=== PATIENT | female | born 1980 | race Caucasian/White ===

== ENCOUNTER 2018-07-08 02:33 | Inpatient (IN) | payer BC ==
[2018-07-08] VITALS (9 sets, daily range): BP systolic 117–173; BP diastolic 64–103
[~2018-07-08] VITALS: Ht 175.3 cm; Wt 98.0 kg
[~2018-07-08 02:33] MED LIST: BP MEDS; CIPROFLOXACN500 MG PO; CYANOCOBALAM1000 MCG IJ; CYANOCOBALAM1000 MCG IM; DILAUDID 2MG2 MG/TA1 PO; NAPROXEN500 MG PO; NO CURRENT MEDS; NO HOME MEDS; PERCOCET 5/325M1 TAB PO; POOR HISTORIAN; TENORMIN25 MG PO; VALACYCLOVIR1 GM PO; ZOFRAN ODT4 MG PO
--- NOTE | 2018-07-08 02:48 | NUR ---
ASSISTED FROM W/C TO STRETCHER. RETURNED FOOT TO NORMAL POSITION OF FUNCTION AN SPLINTED WITH PILLOW. CSM CHECKS GOOD.
--- NOTE | 2018-07-08 02:55 | NUR ---
PHENERGAN WAS GIVEN IV PER DR. TENORIO VERBAL ORDERS.
[2018-07-08 03:01] LABS: HEMATOCRIT 42.3 % (37.0-47.0); IMMATURE GRANULOCYTES 0.7 % (0.0-5.0); MEAN CORPUSCULAR HGB 28.8 pG CALC (26.0-32.0); MEAN CORPUSCULAR HGB CONC 33.1 g/L CALC (32.0-36.0); NEUT# 6.77 thou/uL (2.00-7.15); RED BLOOD COUNT 4.86 mill/uL (4.20-5.60); RED CELL DISTRI WIDTH 13.4 % (11.5-15.5)
[2018-07-08] MEDS ORDERED: HTN MEDS (03:04)
[2018-07-08 03:13] LABS: ALBUMIN 4.6 g/dL (3.2-5.0); ALKALINE PHOSPHATASE 91 u/l (38-126); ANION GAP 25 (6-22 (CALC)); BILIRUBIN, TOTAL 0.4 mg/dL (0.0-1.4); BUN 8 mg/dL (7-17); BUN/CREATININE RATIO 11 (12-20 (CALC)); CARBON DIOXIDE 17 mmol/l (22-30); CHLORIDE 105 mmol/l (95-108); CREATININE 0.7 mg/dL (0.5-1.0); ETHYL ALCOHOL 104 mg/dl (0-30); GFR > 60 ML/MIN (>=60 (CALC)); GFR FOR AFR.AMER. > 60 ML/MIN (>=60 (CALC)); POTASSIUM 3.8 mmol/l (3.5-5.1); SGOT/AST 59 u/l (14-36); SGPT/ALT 56 u/l (9-52); SODIUM 143 mmol/l (137-146); TOTAL PROTEIN 8.1 g/dL (6.3-8.2)
[2018-07-08 03:18] LABS: INTERNATIONAL NORMALIZED RATIO 0.9 RATIO (0.7-1.3); PROTHROMBIN TIME 10.5 SECONDS (9.0-12.5)
--- NOTE | 2018-07-08 03:20 | NUR ---
TO CT SCAN AT THIS TIME.
[2018-07-08] MEDS ORDERED: CYCLOBENZAPRINE10 MG PO (03:30)
[2018-07-08] MEDS ORDERED: ALPRAZOLAM0.5 M2 PO (03:30)
[2018-07-08] MEDS ORDERED: DESYREL50 MG PO (03:31)
[2018-07-08] MEDS ORDERED: ATENOLOL25 MG PO (03:31)
[2018-07-08] MEDS ORDERED: ENALAPRIL MALE2.5 MG PO (03:31)
--- NOTE | 2018-07-08 03:32 | NUR ---
PT. RETURNED FROM CT SCAN AT THIS TIME IN STABLE CONDITION.
--- NOTE | 2018-07-08 04:26 | NUR ---
C/O 7/10 PAIN AT THIS TIME. WILL MEDICATE PER PHYSICIAN ORDERS.
--- NOTE | 2018-07-08 04:36 | NUR ---
PORT CHEST IN PROGRESS.
--- NOTE | 2018-07-08 04:54 | NUR ---
JOANNA JESUS AT BEDSIDE AT THIS TIME TO EVAULATE PATIENT.
--- NOTE | 2018-07-08 05:10 | NUR ---
DR. GONZALEZ AT BEDSIDE TO SPEAK TO PATIENT.
--- NOTE | 2018-07-08 05:15 | NUR ---
PT. STATES PAIN IMPROVED. 12/23 AT THIS TIME.
--- NOTE | 2018-07-08 05:36 | NUR ---
PT. TAKEN TO OR VIA STRETCHER BY MARILU DANIELLE.
--- NOTE | 2018-07-08 05:55 | NUR ---
REPORT CALLED TO CAROL ANN ON MED/SURG.
--- NOTE | 2018-07-08 07:55 | NUR ---
PT ARRIVED TO FLOOR VIA STRETCHER IN STABLE CONDITION ACCOMPANIED BY OR STAFF AND ;PT ASSISTED TO HOSPITAL BED WITH 3 PERSON ASSIST;PT ORIENTED TO ROOM AND CALL LIGHT SYSTEM AND VERBALIZES UNDERSTANDING;WT AND VS OBTAINED BY GWYN DIAZ;PT ALERT AND ORIENTED X3;PT REPORTS HAVING A "KID FREE NIGHT" WITH HER AND DRINKING TOO MUCH WHICH LED TO FALLING DOWN THE STAIRS;PT REPORTS PAIN TO RIGHT ANKLE TO BE 10/10 ON THE PAIN SCALE,PT TO BE MEDICATED WITH PRN PAIN MEDICATION PER MD ORDERS;ASSESSMENT COMPLETED;RESPIRATIONS EVEN AND UNLABORED ON RA,CLEAR/DIMINISHED LUNG SOUNDS NOTED;ABDOMEN DISTENDED/SOFT ON PALPATION AND ACTIVE IN ALL 4 QUADRANTS,LAST BM 07/07;STRONG PEDAL PULSE TO LEFT FOOT,RIGHT UNABLE TO PALPATE DUE TO XTERNAL FIXATOR;RIGHT ANKLE ELEVATED ON X2 PILLOWS PER ORDER;CAP REFILL LESS THAN 3 SECONDS AND PT IS ABLE TO MOVE HER TOES;SCD TO LEFT FOOT IN PLACE;ALL SAFETY PRECAUTIONS REINFORCED WITH BED IN THE LOWEST POSITION;ENCOURAGED PT TO CALL FOR ASSISTANCE IF NEEDED;CALL LIGHT IN REACH;WILL CONTINUE TO MONITOR
--- NOTE | 2018-07-08 08:08 | NUR ---
PT MEDICATED WITH PRN DILAUDID 1MG IVP FOR RIGHT ANKLE PAIN RATING 10/10 ON THE PAIN SCALE,WILL MONITOR FOR EFFECTIVENESS
--- NOTE | 2018-07-08 10:23 | NUR ---
PT COMPLAINS OF RIGHT ANKLE PAIN RATING 6/10 ON THE PAIN SCALE AND REQUESTS PAIN MEDICATION;PT MEDICATED WITH PRN MORPHINE 2MG IVP,WILL CONTINUE TO MONITOR
--- NOTE | 2018-07-08 10:25 | NUR ---
BOLUS OF 250CC PER HOUR ADMINISTERED OVER 30 MINS PER EDSON FRENCH R/T TACHYCARDIA;WILL CONTINUE TO MONITOR
--- NOTE | 2018-07-08 12:40 | NUR ---
PT RESTING IN SUPINE POSITION WITH IN BED;RESPIRATIONS EVEN AND UNLABORED ON RA;IV SITE TO LEFT HAND INFUSING WITH EASE;PT DENIES ANY CURRENT PAIN OR NEEDS;RIGHT ANKLE REMAINS ELEVATED ON X2 PILLOWS WITH EXTERNAL FIXATOR IN PLACE;ENCOURAGED ICE PACKS 20MINS ON AND OFF,PT VERBALIZES UNDERSTANDING;INSTRUCTED PT TO CALL FOR ASSISTANCE IF NEEDED;FALL PRECAUTIONS IN PLACE WITH CALL LIGHT IN REACH;WILL CONTINUE TO MONITOR
[2018-07-08 15:46] LABS: URINE BILIRUBIN - DIPSTICK NEGATIVE (NEGATIVE); URINE BLOOD DIPSTICK NEGATIVE (NEGATIVE); URINE COLOR YELLOW; URINE GLUCOSE - DIPSTICK 100 mg/dL (NEGATIVE); URINE KETONE NEGATIVE (NEGATIVE); URINE LEUK ESTERASE NEGATIVE (NEGATIVE); URINE NITRITE - DIPSTICK NEGATIVE (Negative); URINE PH 5.5 (4.5-8.0); URINE PROTEIN - DIPSTICK TRACE mg/dL (NEG-TRACE); URINE SPECIFIC GRAVITY >=1.030; URINE UROBILINOGEN - DIPSTICK 0.2 E.U./dL (0.2)
--- NOTE | 2018-07-08 15:46 | NUR ---
PT RESTING IN HIGH FOWLERS POSITION WITH SPOUSE IN BED;RESPIRATIONS REMAIN EVEN AND UNLABORED ON RA;PT REPORTS RIGHT ANKLE PAIN RATING 8/10 ON THE PAIN SCALE AND REQUESTS PAIN MEDICATION;PT MEDICATED WITH PRN PERCOCET 10/325MG 2 COMBO,WILL MONITOR FOR EFFECTIVENESS;EXTERNAL FIXATOR REMAINS IN PLACE TO RIGHT ANKLE,DRESSING CDI;RIGHT ANKLE ELEVATED ON X2 PILLOWS;PT DENIES ANY ADDITIONAL NEEDS;ASSESSMENT UNCHANGED;FALL PRECAUTIONS IN PLACE WITH CALL LIGHT IN REACH;WILL CONTINUE TO MONITOR
[2018-07-08 15:56] LABS: URINE CLARITY CLEAR
--- NOTE | 2018-07-08 16:00 | NUR ---
PT ARRIVED BACK TO FLOOR IN STABLE CONDITION ACCOMPANIED BY RADIOLOGY STAFF.
[2018-07-08 16:02] LABS: CHOLESTEROL HDL RATIO 4.9 (<4.4 (CALC))
--- NOTE | 2018-07-08 17:19 | NUR ---
PT REPORTS RIGHT ANKLE PAIN RATING 9/10 ON THE PAIN SCALE AND REQUESTS PAIN MEDICATION;PT MEDICATED WITH PRN MORPHINE 2MG IVP,WILL MONITOR FOR EFFECTIVENESS
--- NOTE | 2018-07-08 19:15 | NUR ---
PT RESTING IN BED WITH SIGNIFICANT OTHER. PT IS ALERT AND ORIENTED X3. SHIFT ASSESSMENT COMPLETED AT THIS TIME. IV PATENT X1. PLAN OF CARE REVIEWED WITH PT. CALL LIGHT IN REACH. WILL CONTINUE TO MONITOR.
--- NOTE | 2018-07-08 22:06 | NUR ---
PT REPORTS THAT PERCOCET DID NOT RELIEVE PAIN AT ALL AND REQUESTS MORPHINE. MEDICATED WITH MORPHINE PER DEC.
--- NOTE | 2018-07-08 23:44 | NUR ---
PT RESTING IN BED WITH EYES CLOSED. SIGNIFICANT OTHER IN BED WELL. RESP ARE EVEN AND UNLABORED. NO DISTRESS NOTED. CALL LIGHT IN REACH. WILL CONTINUE TO MONITOR
[2018-07-09 03:42] VITALS: BP 142/86
--- NOTE | 2018-07-09 04:18 | NUR ---
PT RESTING IN BED WITH SIGNIFICANT OTHER. RESP ARE EVEN AND UNLABORED. NO DISTRESS NOTED. CALL LIGHT IN REACH. WILL CONTINUE TO MONITR.
[2018-07-09 04:47] LABS: MEAN CELL VOLUME 89.6 fL CALC (80.0-100.0); MEAN CORPUSCULAR HGB 29.4 pG CALC (26.0-32.0); MEAN CORPUSCULAR HGB CONC 32.8 g/L CALC (32.0-36.0); RED BLOOD COUNT 3.95 mill/uL (4.20-5.60); RED CELL DISTRI WIDTH 13.5 % (11.5-15.5)
[2018-07-09 04:51] LABS: HEMOGLOBIN 11.6 g/dl (12.0-16.0)
[2018-07-09 04:52] LABS: HEMATOCRIT 35.4 % (37.0-47.0)
--- NOTE | 2018-07-09 04:58 | NUR ---
PT WITH COMPLAINTS OF EXCRUTIATING PAIN 07/25. PATIENT IN TEARS IN ROOM. MORPHINE IS NOT DUE AT THIS TIME. MEDICATED WITH 2 PERCOCET AND 10MG CYCLOBENZAPRINE PER MAR
--- NOTE | 2018-07-09 05:18 | NUR ---
SPOKE WITH DR MARTINEZ IN REFERENCE TO PAIN. NEW ORDERS RECEIVED. REINFORCED SMITH WITH GAUZE AND KERLIX DUE TO BLEEDING. WILL CONTINUE TO MONITOR.
--- NOTE | 2018-07-09 05:33 | NUR ---
DILAUDID 4MG IV GIVEN IN 2 DIVIDED DOSES FOR PT SAFETY.
[2018-07-09 07:45] VITALS: BP 156/91
--- NOTE | 2018-07-09 07:45 | NUR ---
ASSESSMENT IS COMPLETED: PT IS ALERT, NO DISTRESS NOTED. IV SITE IS FREE FROM REDNESS OR EDEMA. HR IS REG, PULSES ARE STRONG X4, ABD IS SOFT WITH ACTIVE BS. DRESSING ON R ANKLE IS CDI. CONTINUE TO OSBERVE AND MONITOR
--- NOTE | 2018-07-09 08:55 | NUR ---
ATTEMPTED EVAL THIS AM. HOWEVER, PT REFUSED DUE TO EXTREME PAIN ON R ANKLE WHEN SHE TRIES TO MOVE. REPORTS THAT SHE WILL UNDERGO SURGERY FOR R ANKLE GUEVARA AND PREFERS TO PARTICIPATE WITH P.Sara CLEMONS AFTER THE SURGERY.
[2018-07-09 11:30] VITALS: BP 151/88
--- NOTE | 2018-07-09 12:30 | NUR ---
PT'S IV SITE IS HEPLOCKED. NO DISTRESS NOTED CONTINUE TO OSBERVE AND MONITOR.
--- NOTE | 2018-07-09 16:00 | NUR ---
CALLED OR TO GET AN UPDATE ON POSSIBLE OR TOMORROW. , NOTHING IS ON THE BOOKS FOR TOMORROW. WAITING FOR THE DR'S NOTE. CONTINUE TO OSBERVE AND MONITOR
[2018-07-09 16:30] VITALS: BP 140/89
--- NOTE | 2018-07-09 16:30 | NUR ---
PT IS RELAXING IN BED AND VISITING WITH FAMILY.
--- NOTE | 2018-07-09 19:24 | NUR ---
REPORT GIVEN BY CELESTE APARICIO. PATIENT RESTING IN BED WITH FAMILY AT THE BEDSIDE. RESP EVEN AND UNLABORED. NO S/S OF DISTRESS NOTED. PLAN OF CARE DISCUSSED, FALL PRECAUTIONS IN PLACE, AND PATIENT INFORMED TO CALL WITH ANY QUESTIONS OR CONCERNS.
[2018-07-09 20:00] VITALS: BP 161/92
--- NOTE | 2018-07-09 20:24 | NUR ---
PATIENT DISLODGED OLD IV SITE IN THE LEFT HAND, NEW IV STARTED 20 R HAND.
--- NOTE | 2018-07-09 23:52 | NUR ---
PATIENT AWAKE WITH AT BEDSIDE. PATIENT HAS C/O OF RIGHT ANKLE PAIN WILL MEDICATE PER MD ORDERS. RESP EVEN AND UNLABORED.
[2018-07-10 01:03] VITALS: BP 144/81
[2018-07-10 03:39] VITALS: BP 146/92
--- NOTE | 2018-07-10 03:58 | NUR ---
PATIENT AWAKE WITH C/O PAIN WILL MEDICATE PER MD ORDERS. RESP EVEN AND UNLABORED. PRESENT AT THE BEDSIDE.
[2018-07-10 07:50] VITALS: BP 128/84
--- NOTE | 2018-07-10 07:50 | NUR ---
ASSESSMENT IS COMPLETED: IV SITE IS FREE FROM REDNESS OR EDEMA. HR IS REG, PULSES ARE STRONG X4, ABD IS SOFT WITH ACTIVE BS. BREATH SOUNDS ARE CLEAR, BILATERALLY. CONTINUE TO OBSERVE AND MONITOR.
--- NOTE | 2018-07-10 09:18 | NUR ---
SPOKE WITH RE: SURGERY (YES OR NO). PLANS ON DOING SURGERY NEXT MONDAY. WILL COME AND SEE THE PT TODAY. WANTING TO SEND HER HOME. PT IS NOT WANTING TO GO HOME RIGHT NOW DUE TO (MOVE TO A NEW PLACE, WILL BE ALONE, WILL BE OFF ON THE WEEKEND). CONTINUE TO OBSERVE AND MONITOR.
--- NOTE | 2018-07-10 12:30 | NUR ---
PT HAS BEEN IN THE CHAIR. NO DISTRESS NOTED. IV SITE IS FREE FROM REDNESS OR EDEMA.
--- NOTE | 2018-07-10 14:39 | NUR ---
AM: 11:20: PAlisa CLEMONS. DONE AND TRANSFER TRAINING MAINTAINING NWB RIGHT DONE. PATIENT LEFT COMFORTABLE IN THE CHAIR.
[2018-07-10 15:21] VITALS: BP 135/69
--- NOTE | 2018-07-10 15:44 | NUR ---
The patient is seen in PM. She has just gotten BTB NWB using the walker with assistance of family. She is instructed in and demonstrated HEP of gluteal and quad sets and advised to stand 6 x daily when DC home. She continues to have some donovan blood at the bottom of her dressing but has no pain. She is independent with bed mobility and with her HEP
--- NOTE | 2018-07-10 16:31 | NUR ---
IS HERE TO VISIT WITH PT. IV SITE IS FREE FROM REDNESS OR EDEMA.
--- NOTE | 2018-07-10 19:00 | NUR ---
RECEIVED CHANGE OF SHIFT REPORT FROM ALESSANDRA ALONSO. PT ALERT AND ORIENTED X 3 AND LYING IN BED. STATES PAIN LEVEL OF 4 ON 0-10 PAIN SCALE, WHICH SHE CAN TOLERATE. RLE WITH EXTERNAL FIXATOR ELEVATED ON PILLOW. FOOT COOL TO TOUCH. PT ABLE TO WIGGLE TOES. NO APPARENT ACUTE DISTRESS NOTED. WILL CONTINUE TO MONITOR.
[2018-07-10 19:22] VITALS: BP 143/85
--- NOTE | 2018-07-10 20:50 | NUR ---
PT ARRIVED TO THE FLOOR IN STABLE CONDITION VIA STRETCHER AND ACCOMPANIED BY ED NURSE. PT WEIGHED AND SETTLED TO BED. DENIES CHEST PAIN OR DISCOMFORT AT THIS TIME. ORIENT PT TO ROOM CALL SYSTEM. BED IN LOW POSITION AND CALL LIGHT IN REACH.
--- NOTE | 2018-07-11 | NUR ---
PT RESTING QUIETLY IN BED AND APPEARS TO BE ASLEEP. WAKES UP SPONTANEOUSLY. NO APPARENT ACUTE DISTRESS NOTED.
[2018-07-11 00:02] VITALS: BP 123/67
[2018-07-11 04:45] VITALS: BP 152/87
--- NOTE | 2018-07-11 05:00 | NUR ---
PT RESTED WELL DURING THE NIGHT. PAIN CONTROLLED WITH ALTERNATING MEDICATIONS. NO APPARENT ACUTE CHANGES NOTED IN PT'S CONDITION.
[2018-07-11 08:00] VITALS: BP 136/86
--- NOTE | 2018-07-11 08:00 | NUR ---
ASSESSMENT IS COMPLETD: IV SITE IS FREE FROM REDNESS OR EDEMA. HR IS REG,PULSES ARE STRONG X4, ABD IS SOFT WITH ACTIVE BS. DRESSING ON R ANKLE IS CDI. BREATH SOUNDS ARE CLEAR, BILATERALLY. CONTINUE TO OSEBRVE AND MONITOR
[2018-07-11 09:21] LABS: HEMATOCRIT 38.9 % (37.0-47.0); HEMOGLOBIN 12.7 g/dl (12.0-16.0); MEAN CELL VOLUME 89.4 fL CALC (80.0-100.0); MEAN CORPUSCULAR HGB 29.2 pG CALC (26.0-32.0); MEAN CORPUSCULAR HGB CONC 32.6 g/L CALC (32.0-36.0); RED BLOOD COUNT 4.35 mill/uL (4.20-5.60); RED CELL DISTRI WIDTH 13.4 % (11.5-15.5)
[2018-07-11 09:47] LABS: BUN 6 mg/dL (7-17); BUN/CREATININE RATIO 11 (12-20 (CALC)); CHLORIDE 103 mmol/l (95-108); CREATININE 0.6 mg/dL (0.5-1.0); GFR > 60 ML/MIN (>=60 (CALC)); GFR FOR AFR.AMER. > 60 ML/MIN (>=60 (CALC)); POTASSIUM 3.8 mmol/l (3.5-5.1); SODIUM 143 mmol/l (137-146)
[2018-07-11 09:51] LABS: ANION GAP 19 (6-22 (CALC)); CARBON DIOXIDE 25 mmol/l (22-30)
[2018-07-11 11:00] VITALS: BP 132/85
--- NOTE | 2018-07-11 12:00 | NUR ---
PT IS RELAXING IN BED VISITING WITH FAMILY. IV SITE IS FREE FROM REDNESS OR EDEMA.
--- NOTE | 2018-07-11 13:44 | NUR ---
PM. PT WAS SEEN FOR GT. SHE WAS ABLE TO GET OOB INDEPENDENTLY. COMPLAINING OF R FOOT THROBBING PAIN PS 7/. PT ASSUMED STANDING FROM SITTING PUSHING SELF UP ON BED WITH SBA TO ENSURE SAFETY. PT THEN AMBULATED BEDSIDE ~10 FT. X 2 WITH A STANDARD WALKER AND CGA. PT APPEARED MORE STABLE WITH A STANDARD WALKER SHE HOPPED ON L LE. PT REPOSITIONED HERSELF ON BED INDEPENDENTLY. CALL HAWK WITHIN REACH. NO ADVERSE RXNS NOTED OR REPORTED AT THE END OF TX.
[2018-07-11] MEDS ORDERED: PERCOCET 10/31 COMBO PO (14:38)
[2018-07-11 16:00] VITALS: BP 125/80
--- NOTE | 2018-07-11 16:00 | NUR ---
PT IS RELAXING, IN BED VISITING WITH FAMILY. NO DISTRESS NOTED. R LEG IS WARM TO THE TOUCH.,HAS A SPOT FROM SCRAPING THE LEG ON A DOG CRATE AT HOME. CONTINUE TO OSBERVE AND MONITOR.
--- NOTE | 2018-07-11 18:00 | NUR ---
PATIENT SEEN FOR GT WITH CRUTCHES DUE TO CONCERNS FOR D/C HOME. PATIENT DOES NOT WISH TO GO TO INPATIENT REHAB, BUT WANTS TO BE HOME WITH HER FAMILY UNTIL SHE HAS SECONDARY SURGERY NEXT MONDAY. SHE STATES THAT A WALKER WITH A SEAT WAS PURCHASED FOR USE AT HOME. WE ATTEMPTED CRUTCH TRAINING. THIS IS BETTER FOR HER ONLY DUE TO NOTHING SURROUNDEING HER EXT FIXATOR ON R FOOT. SHE IS ABLE TO MAINTAIN NWB R LE, BUT HAS LESS STABILITY WITH CRUTCHES, TENDS TO HOLD FOOT BEHIND HER, WHICH PUTS HER MORE AT RISK FOR A FALL FORWARD. WITH THE WALKER, SHE HAS MORE STABILITY, ESPECIALLY WITH TRANSFERS. WE BROUGHT A ROLLATOR FOR HER TO SEE AND IMMEDIATELY SHE STATED THAT IT WAS NOT EVEN STABLE ENOUGH TO STAND WITH. PATIENT REQUIRED CGA FOR CRUTCH WALKING NWB R X 25 FEET TO BR FOR TOILETING. SHE WAS ABLE TO AMB 50 FEET WITH CLOSE SBA WITH WALKER. SHE HAS BEEN USING THE WALKER FOR OOB TO BR DURING THE DAY, WITHOUT DIFFICULTY. PATIENT DOES NOT HAVE STAIRS AT HOME, THERFORE, CRUTCHES ARE NOT A NECESSITY. SHE IS NOT SAFE FOR D/C HOME WITHOUT A STABLE ASSISTVE DEVICE. WE WILL RECOMMEND HOLDING D/C FOR MORE GT WITH CRUTCHES AND/OR AN APPROPRIATE STANDARD WALKER TO ENSURE SAFETY WITH AMB AND TRANSFERS. DISCUSSED FINDINGS WITH ALONSO DENISE AND WE ARE IN AGREEMENT TO RESUME ASSESSMENT OF SAFETY TOMORROW. WILL TRY CRUTCHES WITH HAND PORT ENGINEER ADJUSTED FOR IMPROVED STABILITY.
--- NOTE | 2018-07-11 18:29 | NUR ---
PT UNABLE TO BE DISCHARGED DUE TO NOT BEIGN SAFE PER PHYSICAL THERAPY. AND THE PHARMACY SERVICES DIRECTOR.
--- NOTE | 2018-07-11 18:53 | NUR ---
The patient was seen this AM for review of her HEP and for ambulation. She was able to transfer OOB to stand independently and had no difficulty walking on a lvel surface for about 50 feet NWB. She was using a FWW and I do recommend this for home as she has no stairs but is in the process of bulding a house. She lives in an apartment now and has moving boxes and clutter she must navigate. SHe is indpendent with her gluteal/ quad sets and her toe wiggles and understands to perform repeatedly during the day
[2018-07-11 19:00] VITALS: BP 128/85
--- NOTE | 2018-07-11 19:15 | NUR ---
PT IS IN BED W/RIGHT FOOT ELEVATED. DRESSING IS CDI, IS AT BEDSIDE. PT DENIES ANY NEEDS AT THIS TIME. CALL LIGHT AT SIDE AND PT ENCOURAGED TO CALL IF ANY NEEDS ARISE.
--- NOTE | 2018-07-11 20:49 | NUR ---
PT MEDICATED ORDERS PROVIDE AND MEDICATED FOR PAIN 7/10 REPORTED ON PAIN SCALE. PT ASSESSED, LUNG SOUNDS ARE CLEAR, ABD ACTIVE BOWEL SOUNDS NON-TENDER, DRESSING TO RIGHT ANKLE IS CDI, TOES ARE WARM TO TOUCH AND PT IS ABLE TO MOVE TOES. PT REPORTS STAYING THE NIGHT WITH HER. PT DENIES ANY OTHER NEEDS AT THIS TIME. CALL LIGHT AT BEDSIDE.
--- NOTE | 2018-07-12 04:22 | NUR ---
PT WAS MEDICATED FOR PAIN REPORTED 9/10 ON PAIN SCALE. PT APPEARS IN MILD DISTRESS DUE TO PAIN. PT SPOUSE IS AT BEDSIDE PREPARING ICE DRINKS FOR PT. MENTIONED DRAINAGE ON PILLOW CASE FROM LOWER PART OF FIXATOR TO ANKLE. I OBSERVED SMALL AMOUNT OF DRAINAGE FROM LOWER PART OF DRESSING TO RIGHT FOOT. PILLOW CASE CHANGED AND PAD PLACED UNDER RIGHT FOOT FOR DRAINAGE OBSERVATION. ICE-PACKS PLACED ON EITHER SIDE OF RIGHT ANKLE AND PT.ENCOURAGED TO CALL FOR ANY OTHER NEEDS.
[2018-07-12 04:45] VITALS: BP 151/94
[2018-07-12 05:50] LABS: ANION GAP 15 (6-22 (CALC)); BUN 8 mg/dL (7-17); BUN/CREATININE RATIO 13 (12-20 (CALC)); CARBON DIOXIDE 29 mmol/l (22-30); CHLORIDE 103 mmol/l (95-108); CREATININE 0.6 mg/dL (0.5-1.0); GFR > 60 ML/MIN (>=60 (CALC)); GFR FOR AFR.AMER. > 60 ML/MIN (>=60 (CALC)); POTASSIUM 4.3 mmol/l (3.5-5.1); SODIUM 142 mmol/l (137-146)
--- NOTE | 2018-07-12 07:00 | NUR ---
SHIFT CHANGE REPORT FROM ROBY GRAHAM AWAKE AND ALERT RESTING IN BED, EXTERNAL FIXATOR IN PLACE TO RIGHT FOOT, DRESSING IN PLACE WITH NO SIGN DRAINAGE, PAIN CONTROLLED WITH ANALGESICS, CALL HAWK IN REACH.
[2018-07-12 09:06] VITALS: BP 142/87
--- NOTE | 2018-07-12 10:25 | NUR ---
PATIENT REPORTS SHE WENT TO GET UP AND GO TO THE BATHROOM WITH WALKER AND SHE ACCIDENTLALLY PUT WEIGHT ON THE BALL OF HER RIGHT FOOT FOR A SECOND AND HAD SIGNIFICANT PAIN IN HER ANKLE, TO BRING HER TO TEARS. SHE DOES NOT FEEL COMFORTABLE TRYING CRUTCHES AGAIN TODAY SHE DOES NOT FEEL SFE TRANSFERRING WITHOUT THE WALKER. SUPINT TO SIT INDEP AND SIT TO STAND TO STANDARD WALKER WITH CGA ANC V.C.'S FOR HAND PLACEMENT. PATIENT AMB 60 FT TO END OF CHRISTENSEN AND SAT IN TO REST. SHE WAS ABLE TO MAINTAIN NWB R LE AND REQUIRED INTERMITTENT V.C.'S TO DECREASE STEP LENGTH AND MAINTAIN JOE WITHIN WALKER. PATIENT ABLE TO STAND FROM CHAIR SAFELY AND AMB BACK TO ROOM 60 FT. STAND TO SIT SAFELY WITH SBA. LEGS ELEVATED, ABLE TO WIGGLE TOES. FAMILY WISHES TO RENT A KNEE SCOOTER. THIS MAY BE BETTER SERVED ONCE SHE HAS EXT FIXATOR REMOVED WITH SECONDARY SURGERY. INFORMED RD MECHANICAL ENGINEER AND CASE MANAGEMENT THAT PATIENT IS SAFE WTIH STANDARD WALKER ONLY. NO NEED FOR CRUTCHES AND UNDER NO CIRCUMSTANCES TO USE ROLLATOR.
--- NOTE | 2018-07-12 12:35 | NUR ---
ATE MEAL AND RESTING IN BED, ALL NEEDS ADDRESSED, WILL CONTINUE TO MONITOR. SHARRON BURNS JUST BROUGHT IN WALKER FOR PT TO TAKE HOME AND TOOK [employer]'S WALKER FROM ROOM TO RETURN TO STORAGE.
[2018-07-12 16:00] VITALS: BP 138/80
--- NOTE | 2018-07-12 17:18 | NUR ---
Discharge instructions given. Patient verbalizes understanding of same. Discharged in stable condition via Wheelchair to Home with spouse. All belongings sent with pt.
== END 2018-07-12 17:20 | disposition home or self-care (01) | DRG 563 ==
LOC: ED 02:33 → ED-I 05:37 → ED 05:47 → MS2 05:48 → ED 05:50 → ED-I 05:50 → MS2 07-12 17:20
PROVIDERS: Emergency Medicine; Nurse Practitioner Family; ADMIT Internal Medicine Nephrology; ATTEND Internal Medicine Nephrology
PROC: 0QSGXZZ Reposition Right Tibia, External Approach (ICD-10-PCS; principal; 2018-07-08)
PROC: 2W3LXYZ Immobilization of Right Lower Extremity using Other Device (ICD-10-PCS; 2018-07-08)
DX: S82.871A Displaced pilon fracture of right tibia, initial encounter for closed fracture (principal); S82.831A Other fracture of upper and lower end of right fibula, initial encounter for closed fracture; S93.401A Sprain of unspecified ligament of right ankle, initial encounter; F10.129 Alcohol abuse with intoxication, unspecified; F41.9 Anxiety disorder, unspecified; M48.061 Spinal stenosis, lumbar region without neurogenic claudication; I10 Essential (primary) hypertension; H54.62 Unqualified visual loss, left eye, normal vision right eye; M51.36 Other intervertebral disc degeneration, lumbar region; G89.4 Chronic pain syndrome; K59.00 Constipation, unspecified; E56.9 Vitamin deficiency, unspecified; W10.9XXA Fall (on) (from) unspecified stairs and steps, initial encounter; Y92.009 Unspecified place in unspecified non-institutional (private) residence as the place of occurrence of the external cause
CPT/HCPCS: J1650; J2270

== ENCOUNTER 2018-10-10 20:22 | Inpatient (IN) | payer BC ==
[~2018-10-10] VITALS: Ht 175.3 cm; Wt 104.5 kg
[~2018-10-10 20:22] MED LIST changes: +ALPRAZOLAM0.5 M2 PO; +ATENOLOL25 MG PO; +CYCLOBENZAPRINE10 MG PO; +DESYREL50 MG PO; +ENALAPRIL MALE2.5 MG PO; +HTN MEDS; +PERCOCET 10/31 COMBO PO
--- NOTE | 2018-10-10 20:26 | NUR ---
PATIENT TO ROOM 6. ASSISTED ONTO STRETCHER. BOOT REMOVED FROM RLE, SMITH WRAP REMOVED. TRIAGE COMPLETED AT BEDSIDE.
--- NOTE | 2018-10-10 20:59 | NUR ---
IV STARTED, MEDICATED FOR PAIN. XRAY AT BEDSIDE.
[2018-10-10 21:01] LABS: HEMATOCRIT 40.9 % (37.0-47.0); HEMOGLOBIN 13.4 g/dl (12.0-16.0); IMMATURE GRANULOCYTES 0.6 % (0.0-5.0); MEAN CORPUSCULAR HGB 27.5 pG CALC (26.0-32.0); MEAN CORPUSCULAR HGB CONC 32.8 g/L CALC (32.0-36.0); NEUT# 6.89 thou/uL (2.00-7.15); RED BLOOD COUNT 4.87 mill/uL (4.20-5.60); RED CELL DISTRI WIDTH 14.3 % (11.5-15.5)
[2018-10-10 21:09] LABS: ALBUMIN 4.2 g/dL (3.2-5.0); ALKALINE PHOSPHATASE 124 u/l (38-126); ANION GAP 16 (6-22 (CALC)); BILIRUBIN, TOTAL 0.4 mg/dL (0.0-1.4); BUN 13 mg/dL (7-17); BUN/CREATININE RATIO 21 (12-20 (CALC)); CARBON DIOXIDE 21 mmol/l (22-30); CHLORIDE 108 mmol/l (95-108); CREATININE 0.6 mg/dL (0.5-1.0); GFR > 60 ML/MIN (>=60 (CALC)); GFR FOR AFR.AMER. > 60 ML/MIN (>=60 (CALC)); POTASSIUM 3.8 mmol/l (3.5-5.1); SGOT/AST 39 u/l (14-36); SODIUM 141 mmol/l (137-146); TOTAL PROTEIN 7.8 g/dL (6.3-8.2)
--- NOTE | 2018-10-10 21:12 | NUR ---
PAIN DOWN TO 3/10. INFORMED PT SHE DOES HAVE A FRACTURE. DR LYNN SPEAKING WITH HER SURGEON.
--- NOTE | 2018-10-10 22:15 | NUR ---
DR GONZALEZ AT BEDSIDE.
--- NOTE | 2018-10-10 22:36 | NUR ---
PT TO OR
--- NOTE | 2018-10-10 22:40 | NUR ---
CALLED FLOOR TO GIVE REPORT, GIO WILL CALL BACK
--- NOTE | 2018-10-10 23:29 | NUR ---
CALLED AGAIN FOR REPORT.
--- NOTE | 2018-10-10 23:34 | NUR ---
REPORT GIVEN BY MARILU NEGRO WHEN GIO CALLED BACK.
[2018-10-11] VITALS (9 sets, daily range): BP systolic 127–183; BP diastolic 62–99
--- NOTE | 2018-10-11 00:32 | NUR ---
PT ARRIVED TO UNIT WITH OR STAFF IN STABLE CONDITION; ALERT AND ORIENTED. C/O MINIMAL PAIN TO RLE. EXTERNAL FIXATOR IN PLACE AND LEG ELEVATED ON PILLOW. SCD TO LLE. AT BEDSIDE. LR INFUSING UPON ARRIVAL; IV SITE APPEARS HEALTHY. RESPIRATIONS EVEN AND UNLABORED ON ROOM AIR. ORIENTED TO ROOM AND CALL LIGHT SYSTEM. PLAN OF CARE DISCUSSED. PT ENCOURAGED TO VERBALIZE CONCERNS. STATES UNDERSTANDING. SAFETY MEASURES IN PLACE. CALL LIGHT WITHIN REACH.
--- NOTE | 2018-10-11 01:30 | NUR ---
MORPHINE GIVEN FOR MODERATE PAIN TO RLE; CSM GOOD TO RIGHT FOOT. PHARMACY CALLED TO CLARIFY ROMULO WITH HOME MED TRAZODONE; PT REPORTS THAT SHE HAS NOT TAKEN TRAZODONE IN 2 WEEKS. ROMULO PROFILED; WILL CLARIFY WITH MD IN THE MORNING. NORMAL SALINE NOW INFUSING. LAYING IN BED WITH PT. NO OTHER REQUESTS OR CONCERNS AT THIS TIME.
--- NOTE | 2018-10-11 05:47 | NUR ---
PT ASLEEP AT THIS TIME WITH NO SIGNS OF DISTRESS. RESPIRATIONS EVEN AND UNLABORED ON ROOM AIR. MORPHINE AND PERCOCET HAVE BEEN EFFECTIVE FOR PAIN. SCD TO LLE. EDUCATED ON IS AND ENCOURAGED USE. SAFETY MEASURES IN PLACE. CALL LIGHT WITHIN REACH.
--- NOTE | 2018-10-11 08:00 | NUR ---
PT SEEN AWAKE, ALERT, ORIENTED X 3. PT IS NEGATIVE ASSESSMENT WITH EXCEPTION OF RIGHT LEG, WHICH HAS EXTERNAL FIXATOR IN PLACE. PT ANTICIPATES DISCHARGE TO HOME TODAY. PAIN CONTROLLED BY MORPHINE AND PERCOCET.
[2018-10-11] MEDS ORDERED: PERCOCET1 TA4 PO (12:38)
--- NOTE | 2018-10-11 13:00 | NUR ---
PT VERBALIZES UNDERSTANDING OF DC INSTRUCTIONS, TO GO HOME SOON.
== END 2018-10-11 13:20 | disposition home or self-care (01) | DRG 494 ==
LOC: ED 20:22 → ED-I 21:15 → ED 21:36 → MS2 21:37
PROVIDERS: Emergency Medicine; ADMIT Internal Medicine Nephrology; ATTEND Internal Medicine Nephrology
PROC: 0QSG3BZ Reposition Right Tibia with Monoplanar External Fixation Device, Percutaneous Approach (ICD-10-PCS; principal; 2018-10-10)
DX: S82.251A Displaced comminuted fracture of shaft of right tibia, initial encounter for closed fracture (principal); I10 Essential (primary) hypertension; F41.1 Generalized anxiety disorder; F32.9 Major depressive disorder, single episode, unspecified; E78.5 Hyperlipidemia, unspecified; S82.871D Displaced pilon fracture of right tibia, subsequent encounter for closed fracture with routine healing; X58.XXXD Exposure to other specified factors, subsequent encounter; V00.141A Fall from scooter (nonmotorized), initial encounter; Y92.481 Parking lot as the place of occurrence of the external cause

== ENCOUNTER 2019-10-25 | Emergency (ER) | payer BC ==
[~2019-10-25] MED LIST changes: +PERCOCET1 TA4 PO
[2019-10-25 22:21] LABS: HEMATOCRIT 39.6 % (37.0-47.0); IMMATURE GRANULOCYTES 0.5 % (0.0-5.0); MEAN CELL VOLUME 84.4 fL CALC (80.0-100.0); MEAN CORPUSCULAR HGB 27.7 pG CALC (26.0-32.0); MEAN CORPUSCULAR HGB CONC 32.8 g/L CALC (32.0-36.0); NEUT# 6.1 thou/uL (2.00-7.15); RED BLOOD COUNT 4.69 mill/uL (4.20-5.60); RED CELL DISTRI WIDTH 14.3 % (11.5-15.5)
[2019-10-25 22:29] LABS: ALBUMIN 4.1 g/dL (3.2-5.0); ALKALINE PHOSPHATASE 113 u/l (38-126); ANION GAP 16 (6-22 (CALC)); BILIRUBIN, TOTAL 0.4 mg/dL (0.0-1.4); BUN 11 mg/dL (7-17); BUN/CREATININE RATIO 20 (12-20 (CALC)); CARBON DIOXIDE 21 mmol/l (22-30); CHLORIDE 104 mmol/l (95-108); CREATININE 0.5 mg/dL (0.5-1.0); GFR > 60 ML/MIN (>=60 (CALC)); GFR FOR AFR.AMER. > 60 ML/MIN (>=60 (CALC)); POTASSIUM 3.7 mmol/l (3.5-5.1); SGOT/AST 43 u/l (14-36); SODIUM 137 mmol/l (137-146); TOTAL PROTEIN 7.8 g/dL (6.3-8.2)
[2019-10-26] MEDS ORDERED: AMOXICILLIN/CL875 MG PO (00:14)
[2019-10-26] MEDS ORDERED: METFORMIN500 M1 PO (00:14)
== END 2019-10-26 00:30 | disposition home or self-care (01) | DRG 603 ==
PROVIDERS: Emergency Medicine
DX: L03.115 Cellulitis of right lower limb (principal); E11.65 Type 2 diabetes mellitus with hyperglycemia; I10 Essential (primary) hypertension; Z79.84 Long term (current) use of oral hypoglycemic drugs